=== PATIENT | female | born 1980 | race Caucasian/White ===

== ENCOUNTER 2019-08-04 10:17 | Emergency (ER) | payer OTHER ==
[~2019-08-04] VITALS: Ht 170.2 cm; Wt 99.8 kg
[2019-08-04] MEDS ORDERED: ZYRTEC10 M2 PO (10:35)
[2019-08-04] MEDS ORDERED: ENBRACE HR SOF1 EACH PO (10:35)
[2019-08-04] MEDS ORDERED: MEDROXYPROGESTER5 MG PO (10:36)
[2019-08-04 10:56] LABS: ABSOLUTE LYMPHOCYTES 1.4 thou/uL (0.8-5.3); ABSOLUTE MONOCYTES 0.7 thou/uL (0.0-1.2); ABSOLUTE NEUTROPHILS 10.3 thou/uL (1.6-8.1); BASOPHILS 0.2 %; EOSINOPHILS 0.3 %; HEMATOCRIT 41.9 % (37.0-47.0); HEMOGLOBIN 14.3 gm/dL (12.0-15.0); LYMPHOCYTES 11.2 %; MCH 30.6 pg (26.0-34.0); MCHC 34.2 g/dL (28.0-37.0); MCV 89.6 fL (80.0-100.0); MONOCYTES 5.6 %; MPV 6.8 fl. (7.2-11.1); NUCLEATED RBCS 0 /100WBC; PLATELET COUNT* 370 thou/uL (150-400); POLYS 82.7 %; RBC 4.67 mil/uL (4.20-5.00); RDW-CV 12.6 % (10.5-14.5); WBC 12.5 thou/uL (4.0-11.0)
[2019-08-04 10:59] LABS: URINE BILIRUBIN NEGATIVE (Negative); URINE BLOOD 3+ (Negative); URINE CLARITY CLOUDY; URINE COLOR YELLOW; URINE GLUCOSE-RANDOM NEGATIVE (Negative); URINE KETONES TRACE (Negative); URINE LEUKOCYTES-REFLEX NEGATIVE (Negative); URINE NITRITE-REFLEX NEGATIVE (Negative); URINE PROTEIN 1+ (Negative); URINE UROBILINOGEN 0.2 E.U./dl (0.2-1.0)
[2019-08-04 11:04] LABS: SQUAMOUS >10 Many /LPF (0-3)
[2019-08-04 11:05] LABS: CALCIUM 8.4 mg/dL (8.5-10.1); CREATININE 1.2 mg/dL (0.6-1.3); POTASSIUM 3.6 mmol/L (3.5-5.1)
[2019-08-04 11:08] LABS: URINE RBC >20 Many /HPF (0-2); URINE WBC-REFLEX 6-15 Few /HPF (0-5)
[2019-08-04 11:09] LABS: CASTS None Seen /LPF (None Seen); CRYSTALS None Seen /LPF (None Seen); MUCUS 0-3 Light strn/LPF (None Seen)
[2019-08-04 11:09] LABS: ALBUMIN 3.9 g/dL (3.4-5.0); TOTAL BILIRUBIN 0.5 mg/dL (<0.1-1.0)
[2019-08-04] MEDS ORDERED: IBUPROFEN 800800 M1 PO (12:37)
[2019-08-04] MEDS ORDERED: NORCO 5-325 TA1 EAC1 PO (12:37)
[2019-08-04] MEDS ORDERED: FLOMAX0.4 MG PO (12:37)
[2019-08-04] MEDS ORDERED: ZOFRAN ODT4 MG DISSOLVE (12:37)
[2019-08-04 12:45] VITALS: BP 147/73
== END 2019-08-04 12:46 | disposition home or self-care (01) ==
LOC: EDBD 10:17 → M.ERS 10:17
PROVIDERS: Emergency Medicine Emergency Medical Services
DX: N20.0 Calculus of kidney (principal); Z88.6 Allergy status to analgesic agent